=== PATIENT | male | born 1965 | race Two or more races ===

== ENCOUNTER 2023-07-19 04:45 | Day surgery (SDC) | payer OTHER ==
[2023-07-13 13:26] VITALS: BMI 25.0
[2023-07-19 10:02] VITALS: TEMP 98
[2023-07-19 14:20] VITALS: BP 114/70; PULSE 53; RESP 12
== END 2023-07-19 10:30 | disposition home or self-care (01) ==
LOC: JASU-ENDO 04:45
PROVIDERS: ATTEND Internal Medicine Gastroenterology
PROC: 0DBN8ZX Excision of Sigmoid Colon, Via Natural or Artificial Opening Endoscopic, Diagnostic (ICD-10-PCS; 2023-07-19)
PROC: 0DBL8ZX Excision of Transverse Colon, Via Natural or Artificial Opening Endoscopic, Diagnostic (ICD-10-PCS; 2023-07-19)
PROC: 0DBK8ZX Excision of Ascending Colon, Via Natural or Artificial Opening Endoscopic, Diagnostic (ICD-10-PCS; principal; 2023-07-19 08:45)
DX: Z12.11 Encounter for screening for malignant neoplasm of colon (principal); D12.3 Benign neoplasm of transverse colon; K63.5 Polyp of colon; K64.8 Other hemorrhoids; E11.9 Type 2 diabetes mellitus without complications; Z79.84 Long term (current) use of oral hypoglycemic drugs
CPT/HCPCS: 88305-TC

== ENCOUNTER 2024-08-31 06:33 | Emergency (ER) | payer OTHER ==
[2024-08-31 06:48] VITALS: TEMP 98.1; BMI 25.8
[2024-08-31] MEDS ORDERED: KETOROLAC TROMETHAMINE 30 MG/1 ML VIAL ONE (07:44)
[2024-08-31] MEDS: KETOROLAC TROMETHAMINE 30 MG/1 ML VIAL IM ONE (07:50)
[2024-08-31 11:04] VITALS: BP 116/70; PULSE 70; RESP 18
== END 2024-08-31 11:05 | disposition home or self-care (01) ==
LOC: JER 06:33
PROC: 3E0233Z Introduction of Anti-inflammatory into Muscle, Percutaneous Approach (ICD-10-PCS; principal; 2024-08-31)
DX: R07.89 Other chest pain (principal); M54.9 Dorsalgia, unspecified; W10.8XXA Fall (on) (from) other stairs and steps, initial encounter
CPT/HCPCS: 71101-TC-LT-FY; 99284-25